=== PATIENT | male | born 1950 | race Caucasian/White ===

== ENCOUNTER → 2016-08-26 | Outpatient (CLI) | payer BC ==
[~2016-08-26] MED LIST: ASPEC81 PO; GLCPUNK; ZNTT/150 PO
[2016-08-26 09:31] LABS: BASO % 0.3 %; BASO ABS # 0.02 K/uL (0-0.2); COMPLETE YES; EOS % 2.6 %; HEMATOCRIT 44.9 % (42-52); IG% 0.3 %; LYMPH % 20.9 %; LYMPH ABS # 1.53 K/uL (1.2-3.4); MEAN CELL VOLUME 87.7 fL (80-100); MEAN CORPUSCULAR HEMOGLOBIN 30.3 pg (25-34); MEAN CORPUSCULAR HGB CONC 34.5 g/dl (32-36); MEAN PLATELET VOLUME 11.6 fL (7.4-10.4); MONO % 7.7 %; NEUT % 68.2 %; PLATELET COUNT 158 K/uL (130-400); RED BLOOD COUNT 5.12 M/uL (4.7-6.1); WHITE BLOOD COUNT 7.31 K/uL (4.8-10.8)
[2016-08-26 09:45] LABS: BLOOD UREA NITROGEN 14 mg/dl (7-18); CREATININE 0.92 mg/dl (0.60-1.40); GLUCOSE 198 mg/dl (70-99)
[2016-08-26 09:46] LABS: ALT/SGPT 33 U/L (12-78); BUN/CREATININE RATIO 15.5 (10-20); CALCIUM 9.2 mg/dl (8.5-10.1); CARBON DIOXIDE 28 mmol/L (21-32); CHLORIDE 102 mmol/L (98-107); CHOLESTEROL 106 mg/dl (0-200); POTASSIUM 4.6 mmol/L (3.5-5.1); SODIUM 139 mmol/L (136-145); TRIGLYCERIDES 106 mg/dl (0-150); VERY LOW DENSITY LIPOPROT CALC 21 mg/dl
[2016-08-26 09:47] LABS: ESTIMATED AVERAGE GLUCOSE 134 mg/dl; HA1C FLAG Normal (Normal)
[2016-08-26 09:56] LABS: ALB/GLOB RATIO 1.2 (0.9-2); ALKALINE PHOSPHATASE 60 U/L (45-117); AST/SGOT 19 U/L (15-37); CHOLESTEROL/HDL RATIO 2.1; HDL CHOLESTEROL 50 mg/dl; LDL CHOLESTEROL CALCULATED 35 mg/dl
== END | disposition home or self-care (01) ==
LOC: C.LAB1850 07:33
PROVIDERS: ATTEND Nurse Practitioner Family
DX: E11.9 Type 2 diabetes mellitus without complications (principal); E78.5 Hyperlipidemia, unspecified; E03.9 Hypothyroidism, unspecified

== ENCOUNTER → 2016-10-28 | Outpatient (CLI) | payer BC ==
[2016-10-28 12:04] LABS: % FREE PSA 27.9 %; FREE PSA 1.71 ng/ml; PROSTATE SPECIFIC ANTIGEN 6.12 ng/ml (0.000-4.000)
== END | disposition home or self-care (01) ==
LOC: C.LAB1850 10:17
PROVIDERS: ATTEND Urology
DX: N40.0 Benign prostatic hyperplasia without lower urinary tract symptoms (principal)

== ENCOUNTER → 2017-01-08 | Outpatient (CLI) | payer BC ==
[2017-01-08 12:39] LABS: ESTIMATED AVERAGE GLUCOSE 146 mg/dl; HA1C FLAG Normal (Normal)
== END | disposition home or self-care (01) ==
LOC: C.LAB1850 10:29
PROVIDERS: ATTEND Nurse Practitioner Family
DX: E11.9 Type 2 diabetes mellitus without complications (principal)

== ENCOUNTER → 2017-04-09 | Outpatient (CLI) | payer BC ==
[2017-04-09 12:24] LABS: ESTIMATED AVERAGE GLUCOSE 154 mg/dl; HA1C FLAG Normal (Normal)
[2017-04-09 12:33] LABS: % FREE PSA 25.9 %; FREE PSA 1.79 ng/ml; PROSTATE SPECIFIC ANTIGEN 6.9 ng/ml (0.000-4.000)
== END | disposition home or self-care (01) ==
LOC: C.LAB1850 10:54
PROVIDERS: ATTEND Nurse Practitioner Family
DX: N40.0 Benign prostatic hyperplasia without lower urinary tract symptoms (principal); E11.9 Type 2 diabetes mellitus without complications

== ENCOUNTER → 2017-04-30 | Outpatient (CLI) | payer BC | END | disposition home or self-care (01) | LOC: C.LABSPEC 17:24 | PROVIDERS: ATTEND Nurse Practitioner Family | DX: R39.9 Unspecified symptoms and signs involving the genitourinary system (principal) ==

== ENCOUNTER → 2017-09-01 | Outpatient (CLI) | payer BC ==
[2017-09-01 12:23] LABS: HEMOGLOBIN A1C 7.5 % (4.5-5.6)
[2017-09-01 12:35] LABS: BLOOD UREA NITROGEN 17 mg/dl (7-18); GLUCOSE 248 mg/dl (70-99)
[2017-09-01 12:36] LABS: ALBUMIN 3.9 gm/dl (3.4-5.0); ALT/SGPT 32 U/L (12-78); AST/SGOT 14 U/L (15-37); CALCIUM 8.8 mg/dl (8.5-10.1); CARBON DIOXIDE 24 mmol/L (21-32); CREATININE 0.97 mg/dl (0.60-1.40); POTASSIUM 4.7 mmol/L (3.5-5.1); SODIUM 132 mmol/L (136-145); TOTAL PROTEIN 7.2 gm/dl (6.4-8.2)
[2017-09-01 12:48] LABS: ALKALINE PHOSPHATASE 63 U/L (45-117); CHOLESTEROL 102 mg/dl (0-200); LDL CHOLESTEROL CALCULATED 22 mg/dl
[2017-09-01 13:31] LABS: CREATININE RANDOM URINE 66.8 mg/dl
== END ==
LOC: C.LAB1850 09:41
PROVIDERS: ATTEND Nurse Practitioner Family
DX: E11.9 Type 2 diabetes mellitus without complications (principal); R39.9 Unspecified symptoms and signs involving the genitourinary system

== ENCOUNTER → 2017-12-03 | Outpatient (CLI) | payer BC ==
[~2017-12-03] MED LIST changes: +RANI150T85 PO; -ZNTT/150 PO
[2017-12-04 07:07] LABS: HEMOGLOBIN A1C 7.1 % (4.5-5.6)
== END | disposition home or self-care (01) ==
LOC: C.LABPBG 08:57
PROVIDERS: ATTEND Nurse Practitioner Family
DX: N40.1 Benign prostatic hyperplasia with lower urinary tract symptoms (principal); E11.9 Type 2 diabetes mellitus without complications

== ENCOUNTER → 2018-03-10 | Outpatient (CLI) | payer BC ==
[2018-03-10 13:07] LABS: HEMOGLOBIN A1C 6.7 % (4.5-5.6)
[2018-03-10 13:16] LABS: ALKALINE PHOSPHATASE 54 U/L (45-117); ALT/SGPT 35 U/L (12-78); AST/SGOT 17 U/L (15-37); BLOOD UREA NITROGEN 13 mg/dl (7-18); CALCIUM 8.6 mg/dl (8.5-10.1); CARBON DIOXIDE 25 mmol/L (21-32); CREATININE 0.96 mg/dl (0.60-1.40); GLUCOSE 140 mg/dl (70-99); POTASSIUM 4.7 mmol/L (3.5-5.1); SODIUM 135 mmol/L (136-145); TOTAL PROTEIN 7.3 gm/dl (6.4-8.2)
== END | disposition home or self-care (01) ==
LOC: C.LABPBG 10:12
PROVIDERS: ATTEND Nurse Practitioner Family
DX: E11.65 Type 2 diabetes mellitus with hyperglycemia (principal); E03.9 Hypothyroidism, unspecified; I10 Essential (primary) hypertension

== ENCOUNTER 2019-08-22 11:09 | Inpatient (IN) ==
[2019-08-22] MEDS ORDERED: LORazepam 1 MG/2 ML VIAL IV STA (12:05)
[2019-08-22 12:19] LABS: Eosinophils # (auto) 0.19 K/uL (0-0.5); Eosinophils % (auto) 2.9 %; Hematocrit (blood only) 41.6 % (42-52); Hemoglobin 14.5 g/dL (14.0-18.0); Immature Granulocytes # (auto) 0.01 K/uL (0.00-0.02); Immature Granulocytes % (auto) 0.2 %; Lymphocytes # (auto) 1.59 K/uL (1.2-3.4); Lymphocytes % (auto) 24.5 %; Mean Corpuscular Hemoglobin 30.5 pg (25-34); Mean Corpuscular Hgb Conc 34.9 g/dL (32-36); Mean Corpuscular Volume 87.6 fL (80-100); Mean Platelet Volume 10.3 fL (7.4-10.4); Monocytes # (auto) 0.39 K/uL (0.11-0.59); Neutrophils % (auto) 66.4 %; Platelet Count 171 K/uL (130-400); RDW Coefficient of Variation 12.9 % (11.5-14.5); RDW Standard Deviation 41.2 fL (36.4-46.3); Red Blood Count 4.75 M/uL (4.7-6.1); White Blood Count 6.48 K/uL (4.8-10.8)
[2019-08-22 12:27] LABS: Alanine Aminotransferase 33 U/L (12-78); Albumin Level 3.9 gm/dl (3.4-5.0); Aspartate Aminotransferase 17 U/L (15-37); BUN Creatinine Ratio 11.1 (10-20); Blood Urea Nitrogen 9 mg/dl (7-18); Calcium 8.9 mg/dl (8.5-10.1); Carbon Dioxide 25 mmol/L (21-32); Chloride 102 mmol/L (98-107); Creatinine Clr Calc Pharmacy 108.3 ml/min; Est GFR (African American) 105.4; Glucose 122 mg/dl (70-99); Potassium 4.3 mmol/L (3.5-5.1); Sodium 133 mmol/L (136-145)
[2019-08-22 12:29] LABS: INR 1.1 (0.9-1.1); Partial Thromboplastin Ratio 1.1; Partial Thromboplastin Time 29.5 Seconds (21.0-31.0)
[2019-08-22 12:31] LABS: Albumin Globulin Ratio 1.2 (0.9-2); Alkaline Phosphatase 60 U/L (45-117); Bilirubin,Total 0.5 mg/dl (0.2-1); Globulin 3.3 gm/dl (2.5-4.0); Magnesium 1.9 mg/dl (1.8-2.4); Total Protein 7.2 gm/dl (6.4-8.2); Troponin I < 0.015 ng/ml (0-0.045)
[2019-08-22 12:36] LABS: Appearance Urine Clear (Clear); Bilirubin Urine Negative (Negative); Blood Urine Negative (Negative); Color Urine Yellow; Glucose Urine UA Negative (Negative); Ketones Urine Negative (Negative); Leukocyte Esterase Urine Negative (Negative); Nitrite Urine Negative (Negative); Protein Urine Negative (Negative); Specific Gravity Urine 1.011 (1.000-1.030); Urobilinogen Urine Negative (Negative); pH Urine 6.5 (4.5-7.5)
--- NOTE | 2019-08-22 13:15 | Magnetic Resonance Report ---
MRI OF THE BRAIN WITHOUT CONTRAST CLINICAL HISTORY: Left-sided numbness. Possible stroke. COMPARISON STUDY: None. TECHNIQUE: Utilizing a 1.5 Stormy magnet and dedicated coil, multiplanar, multiecho imaging of the bra in was performed without IV contrast. FINDINGS: Note is made of a 6 mm x 4 mm hyperintense focus within the right thalamus on the diffusion -weighted sequence, image 12 of 48. This corresponds to a small T2 hyperintense focus and is mildly h ypointense on the ADC map. No additional foci of increased signal intensity on the diffusion-weighted sequence are noted. No acute intracranial hemorrhage, midline shift or mass effect is present. There is moderate atrophy. Encephalomalacia within the right temporal lobe is chronic. Ventricular system is unremarkable. Basilar cisterns are patent. There are no extra axial collections. No intracranial m asses are identified on this unenhanced examination. Mild white matter T2 hyperintense foci suggest s mall vessel disease. There are mucous retention cyst within the bilateral maxillary sinuses. Orbits a re unremarkable. Calvarial signal is maintained. IMPRESSION: 1. Small (6 mm) acute right thalamic infarct. No mass effect or hemorrhage. 2. Right temporal lobe encephalomalacia. Moderate atrophy and mild small vessel disease. ACT 112: Negative or not required by law. Electronically signed by: Mateusz Martin M.D. 08/22/2019 1:13 PM
[2019-08-22] MEDS ORDERED: CLOPIDOGREL BISULFATE 75 MG TAB PO ONE (13:46)
[2019-08-22] MEDS ORDERED: ACETAMINOPHEN 325 MG TAB PO PRN (14:25)
[2019-08-22] MEDS ORDERED: PHARMACIST DISCHARGE MED REC CONSULT PRN (14:25)
[2019-08-22] MEDS ORDERED: ONDANSETRON INJ 2 MG/ML 2 ML VIAL IV PRN (14:25)
--- NOTE | 2019-08-22 14:25 | History & Physical Report ---
Date of Service August 22, 2019 Assessment & Plan (1) Acute thalamic infarction: - Admit to med surg with tele - MRI noted for acute small (6mm) R thalamic infarct, right temporal lobe encephalomalacia, moderate atrophy and mild small vessel disease. - Neurology consulted - Dr. Moreno - Check CT angio head and neck - Allow for permissive HTN - Seizure and Fall precautions - A1C and lipids with am labs for completeness - Already on full dose asa daily (pt reports taking this BID at home, counseled to hold on second full dose aspirin tablet per day since we are adding plavix) - add plavix, already received one dose in the ER - Check 2D echo, last echo from 10/10/08 with LVEF of 60%, mild concentric LVH, trileaflet aortic valve with mild calcification, trace MR and TR (2) Arteriosclerotic coronary artery disease: - Continue on asa 325 mg daily, atorvastatin 80 mg daily, hold lisinopril to allow for permissive htn - Add plavix (3) Hypertension: - BP 161/84 at time of admission, monitor, holding lisinopril as above (4) Dyslipidemia: - Continue statin as above (5) Type 2 diabetes mellitus: - Last A1C = 6.7 from 05/26/19, check with am labs - Pt notes glucose readings have been elevated recently, he admits much higher depending on what he eats - Appears that he follows with Anshu Laurent as an outpatient for DM management - HH/DM diet - ISS with accucheckpro achs - Hold metformin and glipizide while inpatient (6) Hypothyroidism: - Continue levothyroxine 100 mcg QAM (7) BPH (benign prostatic hyperplasia): - Pt with complaints of frequent urination, follows with Dr. Gomez as an outpatient, has had outpatient prostate biopsies in the past - Continue dutasteride and tolterodine (8) Obese: - BMI of 32.9, diet and exercise to be encouraged upon discharge. (9) DVT prophylaxis: - teds, initiating DAPT CODE: Full code Dispo: From home, likely to remain in the hospital overnight, pending studies History of Present Illness Primary Care Provider: Dio Livingston This is a 68-year-old male with past medical history of CAD s/p CABG x3 vessel in 2008, HTN, HLD, DM type II, BPH who presents to the ER with acute onset of LUE and Left lateral calf numbness which began last evening after dinner. The pat is present here with his . He notes that they were out to dinner at the [facility] yesterday, he noticed numbness but did not have any motor deficits at all. He was able to eat his meal without difficulty chewing, swallowing, or have any speech disturbances. He denies changes in vision. Pt notes going to bed and woke up with semi-resolved sx of the left leg numbness, but still had numbness of the left hand and an area under the left upper arm. He currently only has numbness of the left palm and all five fingers. He denies any gross motor deficits currently. Pt takes full dose aspirin twice daily, and has been since his triple bypass per cardiology. He follows with Dr. Shah as an outpatient, and is scheduled to see him for a routine appointment soon. He last took all his medication yesterday. Pt has never smoked, and drinks 2 glasses of wine per day with dinner. MRI noted for acute small R thalamic infarct, right temporal lobe encephalomalacia, moderate atrophy and mild small vessel disease. All labs are WNL Allergies Allergy/AdvReac Type Severity Reaction Status Date / Time No Known Allergies Allergy Unknown NONE Verified 08/22/19 12:32 Home Medications Home Medications Medication Instructions Recorded Confirmed Type aspirin 325 mg tablet 325 mg PO DAILY tab 04/12/19 08/22/19 History blood sugar diagnostic #10 ea 04/12/19 04/21/19 History cyanocobalamin (vitamin B-12) 1,000 mcg PO DAILY cap 04/12/19 08/22/19 History 1,000 mcg capsule diphenoxylate-atropine 2.5 1 tab PO QID PRN tab 04/12/19 08/22/19 History mg-0.025 mg tablet glipizide 5 mg tablet, extended 5 mg PO BID #180 tab 04/12/19 08/22/19 History release 24 hr krill oil 500 mg capsule 1,000 mg PO DAILY cap 04/12/19 08/22/19 History levothyroxine 100 mcg tablet 100 mcg PO QAM tab 04/12/19 08/22/19 History lisinopril 5 mg tablet 5 mg PO DAILY #90 tab 04/12/19 08/22/19 History FreeStyle Lancets 28 gauge #400 ea NS 05/21/19 Rx atorvastatin 80 mg tablet 80 mg PO DAILY 90 Days #90 tab 05/27/19 08/22/19 Rx dutasteride 0.5 mg capsule 0.5 mg PO DAILY #90 cap 06/17/19 08/22/19 Rx metformin 500 mg tablet 1,000 mg PO BID #180 tab 06/21/19 08/22/19 Rx tolterodine 2 mg tablet 2 mg PO BID #180 tab 07/19/19 08/22/19 Rx alfuzosin 10 mg PO QPM 08/22/19 08/22/19 History multivitamin with minerals 1 tab PO DAILY 08/22/19 08/22/19 History Past Med/Surg History Medical History Arteriosclerotic coronary artery disease (Acute) Benign prostatic hyperplasia with elevated prostate specific antigen (PSA) (Inactive) Diabetes Dyslipidemia (Acute) Elevated PSA (Acute) Erectile dysfunction (Acute) Hypertension (Acute) Hypoglycemia (Acute) Hypothyroidism (Acute) Obese (Acute) Surgical History No pertinent past surgical history Family History (Updated 08/22/19 @ 15:04 by Melissa Neil PA-C) Other Coronary heart disease Heart disease Social History Preferred Language: Syriac Communication Ability: Effective Curriculum And Assessment Coordinator Required: No Beliefs That Will Affect Care: None Current Living Situation: Spouse Other Information That Helps Us Care for You: No Feels Safe at Home: Yes Safety Concerns: Feels Safe At This Time Smoking Status: Never smoker Do You Dip or Chew Tobacco: No ; Second Hand Exposure: No ; Tobacco Cessation Education Requested by Patient: No Hx Alcohol Use: No Hx Substance Use: No Review of Systems Review of Systems: Constitutional: No fever, sweats or chills Eyes: No diplopia, no worsening or blurred vision ENT: normal hearing, no trouble swallowing Respiratory: No cough, sputum, dyspnea at rest or on exertion Cardiovascular: No chest pain, tightness or palpitations Abdomen: No pain, nausea, vomiting, diarrhea or constipation : frequent urination d/t BPH Musculoskeletal: No joint pain, calf pain, swelling Neurologic: As per HPI involving numbness of the left hand and left lateral calf, currently only describes left hand numbness, no gross motor issues, otherwise no numbness/tingling, or balance problems Psychiatric: No anxiety or depression Skin: No rash or itch Physical Exam Physical Exam: General: awake, alert, no apparent distress Head: Normocephalic, atraumatic ENT: PERRL, EOMI, no pharyngeal exudate, mucous membranes moist Chest: Clear to auscultation, on room air, no adventitious breath sounds Cardiac: Regular rate and rhythm, no murmur, no JVD, normal peripheral pulses, good capillary refill Abdominal: NABS x 4 quadrants, soft, nondistended, nontender to palpation, no rebound, guarding or tenderness Extremities: Normal inspection, no peripheral edema or erythema, calfs nontender to palpation Psych: Normal mood and affect Neuro: AAO x 3, strength intact bilaterally and related 5/5, no motor deficits, speech is clear, +peripheral sensory deficits present in left hand involving all fingers, palm and dorsal aspect of hand. Numbness does not extend past the wrist. No left lateral leg numbness at this point. Constitutional: WD/WN, vitals as above Eyes: normal visual smith by confrontation and + anicteric sclerae Neck: normal visual inspection and trachea midline Respiratory: normal respiratory effort, lungs clear to auscultation Cardiovascular: Rate/Rhythm: regular rate and regular rhythm Gastrointestinal (Abdomen): Inspection/Auscultation: abdomen not distended Percussion/Palpation: abdomen soft; abdomen nontender Musculoskeletal: Head/Neck/Chest: normocephalic and head atraumatic Neg for peripheral LE edema, + pedal pulses Skin: no rashes, warm and dry Neurologic: CN's II-XI intact bilaterally and awake; not confused Speech / Cognition: normal speech scale shooter strength 5/5 b/l Psychiatric: A+Ox3, euthymic affect Speech: normal rate/rhythm/volume of speech Lymphatic: Exam as done by Edna Alexander DO Results & Data Vital Signs (Past 12 Hours) Vital Signs Temp Pulse Pulse Resp BP BP Pulse Ox 08/22/19 13:23 61 20 161/84 H 98 08/22/19 12:35 64 22 153/105 H 96 08/22/19 11:17 36.9 C 71 20 207/97 H 98 Diagnostic Findings MRI OF THE BRAIN WITHOUT CONTRAST CLINICAL HISTORY: Left-sided numbness. Possible stroke. COMPARISON STUDY: None. TECHNIQUE: Utilizing a 1.5 Stormy magnet and dedicated coil, multiplanar, multiecho imaging of the brain was performed without IV contrast. FINDINGS: Note is made of a 6 mm x 4 mm hyperintense focus within the right thalamus on the diffusion-weighted sequence, image 12 of 48. This corresponds to a small T2 hyperintense focus and is mildly hypointense on the ADC map. No additional foci of increased signal intensity on the diffusion-weighted sequence are noted. No acute intracranial hemorrhage, midline shift or mass effect is present. There is moderate atrophy. Encephalomalacia within the right temporal lobe is chronic. Ventricular system is unremarkable. Basilar cisterns are patent. There are no extra axial collections. No intracranial masses are identified on this unenhanced examination. Mild white matter T2 hyperintense foci suggest small vessel disease. There are mucous retention cyst within the bilateral maxillary sinuses. Orbits are unremarkable. Calvarial signal is maintained. IMPRESSION: 1. Small (6 mm) acute right thalamic infarct. No mass effect or hemorrhage. 2. Right temporal lobe encephalomalacia. Moderate atrophy and mild small vessel disease. Code Status & VTE Plan Code Status Full Supervising Physician Co-Signing Physician Notes Pt seen and examined by me. States that the numbness to his L hand is mostly resolved now. Other regions of numbness (L UE otherwise, L sided face, and L calf) all resolved yesterday. No prior hx of same. Denies chest pain or SOB. Tolerating PO without issue. Agree with HPI/ROS as noted by PA See above for my exam in PE section Agree with plan as outlined above R thalamic CVA noted on MRI MRA h/n neg for acute ECHO pending Neuro c/s pending Concerning that pt had an event in the setting of aspirin 650mg QD Changing to plavix PG Care Time/CCT Total # of Minutes Spent Total Time Spent with Patient: Total time spent is greater than 50% in coordination of care (as documented) at patient's floor/unit and/or counseling patient:
--- NOTE | 2019-08-22 14:38 | Emergency Department Note ---
Entered by Iliana Weber acting as a scribe for History of Present Illness General Chief complaint: Neuro Symptoms/Deficit Stated complaint: LEFT ARM AND FACE NUMB - LEFT LEG WAS NUMB LAST NI Time Seen by Provider: 08/22/19 11:55 Source: patient History of Present Illness Onset (ago): day(s) 1 Location: face, upper extremity, lower extremity and left Pain Consistency: + now resolved Quality: + other (numbness) Associated symptoms: + denies other symptoms (denies slurred speech) and + other (numbness on left side); no chest pain and no shortness of breath Treatments prior to arrival: none The patient is a 68 year old male who presents to the Emergency Room with complaints of left sided numbness that began last night around 20:00. He noticed that his left forearm and hand became numb, as well as the left side of his face and left calf. Since then, most of his numbness has subsided, but he did still feel it in his left hand this morning. He confirms that he has still has feeling in his hand. He denies slurred speech, chest pain, headache, and shortness of breath. He has a history of diabetes. The patient denies history of stroke. He takes medication for blood pressure and cholesterol. He confirms that he took his pills this morning. Home Medications Home Medications Medication Instructions Recorded Confirmed Type aspirin 325 mg tablet 325 mg PO DAILY tab 04/12/19 08/22/19 History blood sugar diagnostic #10 ea 04/12/19 04/21/19 History cyanocobalamin (vitamin B-12) 1,000 mcg PO DAILY cap 04/12/19 08/22/19 History 1,000 mcg capsule diphenoxylate-atropine 2.5 1 tab PO QID PRN tab 04/12/19 08/22/19 History mg-0.025 mg tablet glipizide 5 mg tablet, extended 5 mg PO BID #180 tab 04/12/19 08/22/19 History release 24 hr krill oil 500 mg capsule 1,000 mg PO DAILY cap 04/12/19 08/22/19 History levothyroxine 100 mcg tablet 100 mcg PO QAM tab 04/12/19 08/22/19 History lisinopril 5 mg tablet 5 mg PO DAILY #90 tab 04/12/19 08/22/19 History FreeStyle Lancets 28 gauge #400 ea NS 05/21/19 Rx atorvastatin 80 mg tablet 80 mg PO DAILY 90 Days #90 tab 05/27/19 08/22/19 Rx dutasteride 0.5 mg capsule 0.5 mg PO DAILY #90 cap 06/17/19 08/22/19 Rx metformin 500 mg tablet 1,000 mg PO BID #180 tab 06/21/19 08/22/19 Rx tolterodine 2 mg tablet 2 mg PO BID #180 tab 07/19/19 08/22/19 Rx alfuzosin 10 mg PO QPM 08/22/19 08/22/19 History multivitamin with minerals 1 tab PO DAILY 08/22/19 08/22/19 History Allergies Allergy/AdvReac Type Severity Reaction Status Date / Time No Known Allergies Allergy Unknown NONE Verified 08/22/19 12:32 Past Med/Surg History Medical History Arteriosclerotic coronary artery disease (Acute) Benign prostatic hyperplasia with elevated prostate specific antigen (PSA) (Inactive) Diabetes Dyslipidemia (Acute) Elevated PSA (Acute) Erectile dysfunction (Acute) Hypertension (Acute) Hypoglycemia (Acute) Hypothyroidism (Acute) Obese (Acute) Surgical History No pertinent past surgical history Family History (Updated 08/22/19 @ 15:04 by Melissa Neil PA-C) Other Coronary heart disease Heart disease Social History Preferred Language: Indian Communication Ability: Effective Reed Maker Required: No Beliefs That Will Affect Care: None Current Living Situation: Spouse Other Information That Helps Us Care for You: No Feels Safe at Home: Yes Safety Concerns: Feels Safe At This Time Smoking Status: Never smoker Do You Dip or Chew Tobacco: No ; Second Hand Exposure: No ; Tobacco Cessation Education Requested by Patient: No Hx Alcohol Use: No Hx Substance Use: No Review of Systems See HPI for pertinent positives & negatives. and A total of 10 systems reviewed and were otherwise negative Physical Exam Vital Signs Vital Signs - 24 hr 08/22/19 11:17 08/22/19 12:35 08/22/19 13:23 Temperature 36.9 C Temperature Source Oral Pulse Rate 71 Pulse Rate [Apical] 64 61 Respiratory Rate 20 22 20 Respiratory Effort / Characteristics Non-Labored Spontaneous Respiratory Depth Normal Respiratory Pattern Regular Blood Pressure 207/97 H Blood Pressure [Right Arm] 153/105 H 161/84 H Blood Pressure Mean 133 Blood Pressure Mean [Right Arm] 121 109 Pulse Oximetry 98 96 98 Oxygen Delivery Method Room Air Room Air Room Air Sepsis Recent Fever Within 48 Hours No Sepsis New/Unexplained Change in Mental Status No Sepsis Action Taken by Nursing No Action Required 08/22/19 14:25 Temperature Temperature Source Pulse Rate Pulse Rate [Apical] 63 Respiratory Rate 20 Respiratory Effort / Characteristics Respiratory Depth Respiratory Pattern Blood Pressure Blood Pressure [Right Arm] 155/89 H Blood Pressure Mean Blood Pressure Mean [Right Arm] 111 Pulse Oximetry 98 Oxygen Delivery Method Room Air Sepsis Recent Fever Within 48 Hours Sepsis New/Unexplained Change in Mental Status Sepsis Action Taken by Nursing GENERAL: Patient is in no acute distress. HEENT: No acute trauma, normocephalic atraumatic, mucous membranes moist, no nasal congestion, no scleral icterus. NECK: No stridor, no adenopathy, no meningismus, trachea is midline. LUNGS: Clear to auscultation bilaterally, no wheeze, no rhonchi, breath sounds equal. HEART: Subtle systolic murmur. Regular rate and rhythm. ABDOMEN: Soft, nontender, bowel sounds positive, no hernias, no peritonitis. EXTREMITIES: No cyanosis or edema, full range of motion of all the joints without pain or difficulty, no signs for acute trauma. NEUROLOGIC: No facial droop, no speech slur, no cerebellar deficit or pronator drift. Oriented x 3, no acute motor or sensory deficits, no focal weakness. SKIN: No rash, no jaundice, no diaphoresis. Course Course 1200: Past medical records reviewed. The patient was evaluated in room B02. A complete history and physical exam was performed. 1322: MRI shows a small stroke. 1325: I updated the patient on his results. He and his will discuss the possibility of staying at the hospital. 1348: I spoke to Dr. Moreno, neurology, who recommends that the patient take Plavix [address] of aspirin. 1350: I updated the patient, who has agreed to stay in the hospital. [facility] hospitalist was paged. 1413: I spoke to Dr. Alexander, [facility] hospitalist, who agreed to take over care of the patient. The patient will stay for further evaluation. The patient verbally expressed understanding and agreement of the treatment plan. Administered Medications Ioversol (Optiray 320 125ml) 119 ml IV ONCE PRN PRN Reason: Interaction Checking Stop: 08/26/19 15:26 Last Admin: 08/22/19 15:30 Dose: 119 ml Documented by: [id number] Discontinued Medications Clopidogrel Bisulfate (Plavix) 75 mg PO NOW ONE Stop: 08/22/19 13:47 Last Admin: 08/22/19 14:20 Dose: 75 mg Documented by: [id number] Lorazepam (Ativan) 1 mg in 2 mls @ 2 mls/min IV NOW STA Stop: 08/22/19 12:06 Last Admin: 08/22/19 12:33 Dose: 2 mls/min Documented by: [id number] Medical Decision Making Differential Diagnosis Differential diagnosis includes stroke, TIA, electrolyte imbalance, dysrhythmia, A fib, anemia, intracranial bleeding, intracranial mass, as well as others were considered. Medical Records Attestation: I reviewed the patient's medical records. Home Medications Current Medication List: was personally reviewed by me Laboratory Data Attestation: I reviewed the patient's lab results. Result diagrams: 08/22/19 11:47 08/22/19 11:47 Lab Results 08/22/19 08/22/19 08/22/19 Range/Units 11:32 11:47 11:47 WBC 6.48 (4.8-10.8) K/uL RBC 4.75 (4.7-6.1) M/uL Hgb 14.5 (14.0-18.0) g/dL Hct 41.6 L (42-52) % MCV 87.6 (80-100) fL MCH 30.5 (25-34) pg MCHC 34.9 (32-36) g/dL RDW Std Deviation 41.2 (36.4-46.3) fL RDW Coeff of Natacha 12.9 (11.5-14.5) % Plt Count 171 (130-400) K/uL MPV 10.3 (7.4-10.4) fL Immature Gran % (Auto) 0.2 % Neut % (Auto) 66.4 % Lymph % (Auto) 24.5 % Lucas % (Auto) 6.0 % Eos % (Auto) 2.9 % Baso % (Auto) 0.0 % Immature Gran # (Auto) 0.01 (0.00-0.02) K/uL Neut # (Auto) 4.30 (1.4-6.5) K/uL Lymph # (Auto) 1.59 (1.2-3.4) K/uL Lucas # (Auto) 0.39 (0.11-0.59) K/uL Eos # (Auto) 0.19 (0-0.5) K/uL Baso # (Auto) 0.00 (0-0.2) K/uL PT 11.0 (9.0-12.0) Seconds INR 1.1 (0.9-1.1) APTT 29.5 (21.0-31.0) Seconds PTT Ratio 1.1 Sodium (136-145) mmol/L Potassium (3.5-5.1) mmol/L Chloride (98-107) mmol/L Carbon Dioxide (21-32) mmol/L Anion Gap (3-11) BUN (7-18) mg/dl Creatinine (0.6-1.4) mg/dl Est Cr Clr Drug Dosing ml/min Est GFR ( Amer) Est GFR (Non-Af Amer) BUN/Creatinine Ratio (10-20) Glucose (70-99) mg/dl POC Glucose 125 H (70-99) Calcium (8.5-10.1) mg/dl Magnesium (1.8-2.4) mg/dl Total Bilirubin (0.2-1) mg/dl AST (15-37) U/L ALT (12-78) U/L Alkaline Phosphatase (45-117) U/L Troponin I (0-0.045) ng/ml Total Protein (6.4-8.2) gm/dl Albumin (3.4-5.0) gm/dl Globulin (2.5-4.0) gm/dl Albumin/Globulin Ratio (0.9-2) Urine Color Urine Appearance (Clear) Urine pH (4.5-7.5) Ur Specific [place] (1.000-1.030) Urine Protein (Negative) Urine Glucose (UA) (Negative) Urine Ketones (Negative) Urine Blood (Negative) Urine Nitrite (Negative) Urine Bilirubin (Negative) Urine Urobilinogen (Negative) Ur Leukocyte Esterase (Negative) Hepatitis C Ab Screen (Neg) 08/22/19 08/22/19 08/22/19 Range/Units 11:47 11:47 12:26 WBC (4.8-10.8) K/uL RBC (4.7-6.1) M/uL Hgb (14.0-18.0) g/dL Hct (42-52) % MCV (80-100) fL MCH (25-34) pg MCHC (32-36) g/dL RDW Std Deviation (36.4-46.3) fL RDW Coeff of Natacha (11.5-14.5) % Plt Count (130-400) K/uL MPV (7.4-10.4) fL Immature Gran % (Auto) % Neut % (Auto) % Lymph % (Auto) % Lucas % (Auto) % Eos % (Auto) % Baso % (Auto) % Immature Gran # (Auto) (0.00-0.02) K/uL Neut # (Auto) (1.4-6.5) K/uL Lymph # (Auto) (1.2-3.4) K/uL Lucas # (Auto) (0.11-0.59) K/uL Eos # (Auto) (0-0.5) K/uL Baso # (Auto) (0-0.2) K/uL PT (9.0-12.0) Seconds INR (0.9-1.1) APTT (21.0-31.0) Seconds PTT Ratio Sodium 133 L (136-145) mmol/L Potassium 4.3 (3.5-5.1) mmol/L Chloride 102 (98-107) mmol/L Carbon Dioxide 25 (21-32) mmol/L Anion Gap 6.0 (3-11) BUN 9 (7-18) mg/dl Creatinine 0.79 (0.6-1.4) mg/dl Est Cr Clr Drug Dosing 108.3 ml/min Est GFR ( Amer) 105.4 Est GFR (Non-Af Amer) 91.0 BUN/Creatinine Ratio 11.1 (10-20) Glucose 122 H (70-99) mg/dl POC Glucose (70-99) Calcium 8.9 (8.5-10.1) mg/dl Magnesium 1.9 (1.8-2.4) mg/dl Total Bilirubin 0.5 (0.2-1) mg/dl AST 17 (15-37) U/L ALT 33 (12-78) U/L Alkaline Phosphatase 60 (45-117) U/L Troponin I < 0.015 (0-0.045) ng/ml Total Protein 7.2 (6.4-8.2) gm/dl Albumin 3.9 (3.4-5.0) gm/dl Globulin 3.3 (2.5-4.0) gm/dl Albumin/Globulin Ratio 1.2 (0.9-2) Urine Color Yellow Urine Appearance Clear (Clear) Urine pH 6.5 (4.5-7.5) Ur Specific [place] 1.011 (1.000-1.030) Urine Protein Negative (Negative) Urine Glucose (UA) Negative (Negative) Urine Ketones Negative (Negative) Urine Blood Negative (Negative) Urine Nitrite Negative (Negative) Urine Bilirubin Negative (Negative) Urine Urobilinogen Negative (Negative) Ur Leukocyte Esterase Negative (Negative) Hepatitis C Ab Screen Neg (Neg) ECG Data Attestation: I personally reviewed and interpreted this ECG as follows: Indication: + other (neurological symptoms) Rate (beats per minute): 64 Rhythm: + normal sinus ECG Intervals/blocks: + Normal QT-c (410) ECG ST segments: no ST depression and no ST elevation ECG Findings: no PACs and no PVCs Blood Pressure Blood Pressure Findings: Elevated blood pressure Blood Pressure Disposition: further management by hospitalist [facility] Narrative There is no leukocytosis or concerning anemia. No coagulopathy. No significant electrolyte abnormality or kidney failure. No liver enzyme elevation. EKG shows a sinus rhythm, no acute ischemia. Cardiac enzyme testing x1 is not consistent with acute cardiac injury. Urinalysis does not show any evidence for infection. Brain MRI does show a right thalamic stroke, this was felt to be acute. Some encephalomalacia was also noted. On my exam, the patient did not have any focal neurologic deficits. He was awake and alert, he had no speech slur or facial droop. The patient has suffered a small stroke, this stroke occurred yesterday, he is not a candidate for TPA. I spoke to the neurologist institutional research coordinator. Plavix was recommended in place of aspirin. A dose was given here orally. The patient did require a small dose of IV Ativan to help with his anxiety over the tight MRI conditions. The patient is currently resting comfortably without any real complaints. He has agreed to hospitalization. I did speak with case management, the on-call hospitalist was consulted. The patient is aware of all his findings. Impression & Plan Acute cerebrovascular accident (CVA), Hypertension, Left sided numbness Discharge Plan Visit Data *Final* Discharge Date/Time: 08/22/19 15:15 Chief Complaint: Neuro Symptoms/Deficit Stated Complaint: LEFT ARM AND FACE NUMB - LEFT LEG WAS NUMB LAST NI ED Provider: Raffi Cronin Discharge Problem: Acute cerebrovascular accident (CVA), Hypertension, Left sided numbness Patient Disposition: Admitted As Inpatient Discharge Instructions Interventions: ED Discharge Assessment Last Done: 08/22/19 15:15 The scribe's documentation has been prepared under my direction and personally reviewed by me in its entirety. I confirm that the note above accurately reflects all work, treatment, procedures, and medical decision making performed by me.
[2019-08-22] MEDS ORDERED: OPTIRAY 320 125ml IV PRN (15:27)
--- NOTE | 2019-08-22 15:39 | CT Scan Report ---
CT angio head w con HISTORY: Mental status change. Infarct. R thalamic infarct TECHNIQUE: Multiaxial CT angiography of the head was performed IV contrast: 100 cc nonionic Maximu m intensity projection images were also obtained. A dose lowering technique was utilized adhering to the principles of ALARA. COMPARISON: None. FINDINGS: There is no mass, hematoma, midline shift, or acute infarct. A small right thalamic infarct seen on prior MRI is not appreciated by CT criteria Visualized intracranial internal carotid arterie s, distal vertebral arteries, and basilar artery are widely patent. There is no significant stenosis, occlusion, or aneurysm seen within the bilateral ACAs, MCAs, or snow groomer. IMPRESSION: No significant stenosis, occlusion, or aneurysm within the [place]. ACT 112: Negative or not required by law. The above report was generated using voice recognition software. It may contain grammatical, syntax or spelling errors. Electronically signed by: Ivan Vitale M.D. 08/22/2019 3:37 PM
--- NOTE | 2019-08-22 15:42 | CT Scan Report ---
CT angio neck with con HISTORY: Infarct. Mental status change. R thalamic infarct TECHNIQUE: Multiaxial CT angiography of the neck was performed IV contrast: None. All measurements w ere calculated based on NASCET criteria. Maximum intensity projection images were also obtained. A dose lowering technique was utilized adhering to the principles of ALARA. COMPARISON STUDY: None. FINDINGS: The aortic arch and proximal great vessels are widely patent. There is no significant sten osis, occlusion, or dissection identified within the bilateral common carotid, internal carotid, or v ertebral arteries. IMPRESSION: No significant stenosis, occlusion, or dissection identified within the carotid or vertebral arteries . Minimal scattered plaque formation ACT 112: Negative or not required by law. The above report was generated using voice recognition software. It may contain grammatical, syntax or spelling errors. Electronically signed by: Ivan Vitale M.D. 08/22/2019 3:41 PM
[2019-08-22] MEDS ORDERED: DIPHENOXYLATE/ATROPINE 2.5/0.025MG TAB PO PRN (15:50)
[2019-08-22] MEDS ORDERED: ALFUZOSIN HCL 10 MG TAB PO SCH (21:00)
[2019-08-22] MEDS: TOLTERODINE TARTRATE 2 MG TAB PO SCH (21:13)
[2019-08-23 06:18] LABS: Estimated Average Glucose 143 mg/dl; Hemoglobin A1C 6.6 % (4.5-5.6)
[2019-08-23] MEDS ORDERED: LEVOTHYROXINE SODIUM 100 MCG TABLET PO SCH (06:30)
[2019-08-23] MEDS: TOLTERODINE TARTRATE 2 MG TAB PO SCH (07:52)
[2019-08-23 07:53] LABS: Basophils # (auto) 0.01 K/uL (0-0.2); Basophils % (auto) 0.2 %; Eosinophils # (auto) 0.15 K/uL (0-0.5); Hematocrit (blood only) 44.4 % (42-52); Hemoglobin 15.5 g/dL (14.0-18.0); Lymphocytes # (auto) 1.06 K/uL (1.2-3.4); Lymphocytes % (auto) 21.2 %; Mean Corpuscular Hemoglobin 30.5 pg (25-34); Mean Corpuscular Hgb Conc 34.9 g/dL (32-36); Mean Corpuscular Volume 87.4 fL (80-100); Mean Platelet Volume 10.3 fL (7.4-10.4); Neutrophils # (auto) 3.39 K/uL (1.4-6.5); Neutrophils % (auto) 67.6 %; Platelet Count 163 K/uL (130-400); RDW Coefficient of Variation 12.9 % (11.5-14.5); RDW Standard Deviation 41.4 fL (36.4-46.3); Red Blood Count 5.08 M/uL (4.7-6.1); White Blood Count 5.01 K/uL (4.8-10.8)
[2019-08-23 08:20] LABS: BUN Creatinine Ratio 11.5 (10-20); Calcium 9.2 mg/dl (8.5-10.1); Creatinine Clr Calc Pharmacy 101.8 ml/min; Est GFR (African American) 103.8; Est GFR (Non-African American) 89.6; Potassium 4.2 mmol/L (3.5-5.1)
[2019-08-23] MEDS ORDERED: NON-FORMULARY MEDICATION (Krill Oil 1,000 MG) PO SCH (09:00)
[2019-08-23] MEDS ORDERED: CYANOCOBALAMIN 500 MCG TABLET (VITAMIN B-12) PO SCH (09:00)
[2019-08-23] MEDS ORDERED: ASPIRIN 325 MG ECTAB PO SCH (09:00)
[2019-08-23] MEDS ORDERED: CLOPIDOGREL BISULFATE 75 MG TAB PO SCH (09:00)
[2019-08-23] MEDS ORDERED: ATORVASTATIN 40 MG TAB PO SCH (09:00)
[2019-08-23] MEDS ORDERED: MULTIVITAMIN TAB PO SCH (09:00)
[2019-08-23 12:41] VITALS: O2SAT 94
--- NOTE | 2019-08-23 14:43 | Electrocardiogram Report ---
Test Reason : Blood Pressure : / mmHG Vent. Rate : 064 BPM Atrial Rate : 064 BPM P-R Int : 186 ms QRS Dur : 102 ms QT Int : 398 ms P-R-T Axes : 002 -38 034 degrees QTc Int : 410 ms Normal sinus rhythm Left axis deviation Abnormal ECG When compared with ECG of 30-DEC-2011 07:54, No significant change was found Confirmed by Harrison Ashton ([id number]) on 08/23/2019 2:43:32 PM Referred By: REFERRED SELF Confirmed By:Harrison Ashton
[2019-08-23 15:23] VITALS: TEMP 97.5
--- NOTE | 2019-08-23 16:25 | Discharge Summary ---
Date of Service August 23, 2019 Admission HPI Per Admitting Provider This is a 68-year-old male with past medical history of CAD s/p CABG x3 vessel in 2008, HTN, HLD, DM type II, BPH who presents to the ER with acute onset of LUE and Left lateral calf numbness which began last evening after dinner. The pat is present here with his . He notes that they were out to dinner at the [facility] yesterday, he noticed numbness but did not have any motor deficits at all. He was able to eat his meal without difficulty chewing, swallowing, or have any speech disturbances. He denies changes in vision. Pt notes going to bed and woke up with semi-resolved sx of the left leg numbness, but still had numbness of the left hand and an area under the left upper arm. He currently only has numbness of the left palm and all five fingers. He denies any gross motor deficits currently. Pt takes full dose aspirin twice daily, and has been since his triple bypass per cardiology. He follows with Dr. Shah as an outpatient, and is scheduled to see him for a routine appointment soon. He last took all his medication yesterday. Pt has never smoked, and drinks 2 glasses of wine per day with dinner. MRI noted for acute small R thalamic infarct, right temporal lobe encephalomalacia, moderate atrophy and mild small vessel disease. All labs are WNL Principal Diagnosis Pt is doing quite well today. All of his numbness is now resolved. He has no issues with eating. He is very anxious for d/c due to a [employer] meeting tomorrow. Pt denies fever, SOB, chest pain, abd pain, n/v/c/d, LE pain or swelling. Discharge Exam Constitutional WD/WN, vitals as above Eyes normal visual smith by confrontation and + anicteric sclerae Neck normal visual inspection and trachea midline Respiratory normal respiratory effort, lungs clear to auscultation Cardiovascular Rate/Rhythm: regular rate and regular rhythm Gastrointestinal (Abdomen) Inspection/Auscultation: abdomen not distended Percussion/Palpation: abdomen soft; abdomen nontender Musculoskeletal Head/Neck/Chest: normocephalic and head atraumatic Skin no rashes, warm and dry Neurologic CN's II-XI intact bilaterally and awake; not confused Speech / Cognition: normal speech Psychiatric A+Ox3, euthymic affect Speech: normal rate/rhythm/volume of speech Discharge Data Allergies Allergy/AdvReac Type Severity Reaction Status Date / Time No Known Allergies Allergy Unknown NONE Verified 08/22/19 12:32 Consultations 08/22/19 14:13 ED Decision to Admit Stat 08/22/19 14:25 Consult Case Management - Discharge Planning Routine Consult Neurology Routine Ordered Studies 08/22/19 12:05 MR brain wo con Stat 08/22/19 14:27 CT angio head w con Routine 08/22/19 14:28 CT angio neck with con Routine Hospital Course (1) Acute thalamic infarction: - MRI noted for acute small (6mm) R thalamic infarct, right temporal lobe encephalomalacia, moderate atrophy and mild small vessel disease. 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, d/c for plavix ECHO WNL with EF 55-60% Neuro planning for 30day event monitor as outpt (2) Arteriosclerotic coronary artery disease: - d/c asa 325 mg daily Continue atorvastatin 80 mg daily - Add plavix (3) Hypertension: continue home meds (4) Dyslipidemia: - Continue statin as above (5) Type 2 diabetes mellitus: - Last A1C = 6.7 from 05/26/19, now at 6.6 - Pt notes glucose readings have been elevated recently, he admits much higher depending on what he eats - Appears that he follows with Anshu Laurent as an outpatient for DM management - HH/DM diet - Resume home meds (6) Hypothyroidism: - Continue levothyroxine 100 mcg QAM (7) BPH (benign prostatic hyperplasia): - Pt with complaints of frequent urination, follows with Dr. Gomez as an outpatient, has had outpatient prostate biopsies in the past - Continue dutasteride and tolterodine (8) Obese: - BMI of 32.9, diet and exercise to be encouraged upon discharge. (9) DVT prophylaxis: - teds, initiating DAPT CODE: Full code Total Time Total Time Spent Total Time Spent (In Minutes): >30 Total Time Includes: Examination of the Patient, Discharge Planning, Medication Reconciliation, Communication With Other Providers and Other Discharge Plan Discharge Items Patient Disposition: Home - Self-Care Reason For Visit: R THALAMIC CVA Discharge Diagnosis: R thalamic stroke Activity: Resume your previous activity Non-emergency contact: Primary Care Provider and Neurologist Call non-emergency contact if: you have any medication questions and your symptoms worsen Follow-up/Referrals: Dio Livingston [Primary Care Provider] - Diet: Carb Consistent or DM2 and Heart Healthy Addtl Attending Provider Instructions: You will be set up with a 30 day event monitor If you do not hear from someone in the next 48 hours about this, please call the hospital to speak with case management regarding set up Pending Studies at Discharge: No Stand-Alone Forms: My [facility] Local[employer], Smoking Cessation Medications and DC Order Prescriptions: New clopidogrel 75 mg Tablet 75 mg PO QAM Qty: 30 RF: 1 Continued (DME) lancets [FreeStyle Lancets] 28 gauge misc See Dose Instructions .ROUTE .MEDSUPPLY Qty: 400 RF: 3 atorvastatin 80 mg tablet 80 mg PO DAILY 90 Days Qty: 90 RF: 3 dutasteride 0.5 mg capsule 0.5 mg PO DAILY Qty: 90 RF: 0 metformin 500 mg tablet 1,000 mg PO BID Qty: 180 RF: 3 tolterodine 2 mg tablet 2 mg PO BID Qty: 180 RF: 2 cyanocobalamin (vitamin B-12) 1,000 mcg capsule 1,000 mcg PO DAILY RF: 0 diphenoxylate-atropine 2.5-0.025 mg tablet 1 tab PO QID PRN (Reason: Diarrhea) RF: 0 (DME) FreeStyle Lite Strips strip See Dose Instructions .ROUTE .MEDSUPPLY Qty: 10 RF: 0 glipizide 5 mg tablet extended release 24hr 5 mg PO BID Qty: 180 RF: 0 krill oil 500 mg capsule 1,000 mg PO DAILY RF: 0 lisinopril 5 mg tablet 5 mg PO DAILY Qty: 90 RF: 0 levothyroxine 100 mcg tablet 100 mcg PO QAM RF: 0 multivitamin with minerals Tablet 1 tab PO DAILY RF: 0 alfuzosin 10 mg tablet extended release 24 hr 10 mg PO QPM RF: 0 Discontinued aspirin 325 mg tablet 325 mg PO DAILY RF: 0 Discharge Orders: Discharge Order (Routine); Ordered 08/23/19 Ordered By: Edna Alexander Admission Data Admit Date/Time: 08/22/19 14:29 Attending Provider: Edna Alexander Admit Provider: Edna Alexander Primary Care Provider: Dio Livingston Other Providers: Edna Alexander ; Sergei Moreno III Other Interventions: Discharge Summary Assessment (RN) Last Done: 08/23/19 16:25 DC Date/Time DO NOT enter until pt leaves facility: 08/23/19 16:54
[2019-08-23 16:27] VITALS: BP 154/80; PULSE 64
[2019-08-23] MEDS ORDERED: STROKE PATIENT DISCHARGE STA (16:47)
--- NOTE | 2019-08-23 16:52 | Pharmacy Report ---
Pharmacist Stroke Counseling - Date of Service August 23, 2019 - Scope: Pharmacy has been consulted to provide medication discharge counseling for this patient admitted with [ischemic stroke] [hemorrhagic stroke] [transient ischemic attack] as per the Pharmacist Discharge Counseling for Stroke Patients Ling col. - Medications on Discharge: Home Medications Medication Instructions Recorded Confirmed blood sugar diagnostic #10 ea 04/12/19 04/21/19 cyanocobalamin (vitamin B-12) 1,000 mcg PO DAILY cap 04/12/19 08/22/19 1,000 mcg capsule diphenoxylate-atropine 2.5 1 tab PO QID PRN tab 04/12/19 08/22/19 mg-0.025 mg tablet glipizide 5 mg tablet, extended 5 mg PO BID #180 tab 04/12/19 08/22/19 release 24 hr krill oil 500 mg capsule 1,000 mg PO DAILY cap 04/12/19 08/22/19 levothyroxine 100 mcg tablet 100 mcg PO QAM tab 04/12/19 08/22/19 lisinopril 5 mg tablet 5 mg PO DAILY #90 tab 04/12/19 08/22/19 alfuzosin 10 mg PO QPM 08/22/19 08/22/19 multivitamin with minerals 1 tab PO DAILY 08/22/19 08/22/19 New Rx's Medication Instructions Recorded FreeStyle Lancets 28 gauge #400 ea NS 05/21/19 atorvastatin 80 mg tablet 80 mg PO DAILY 90 Days #90 tab 05/27/19 dutasteride 0.5 mg capsule 0.5 mg PO DAILY #90 cap 06/17/19 metformin 500 mg tablet 1,000 mg PO BID #180 tab 06/21/19 tolterodine 2 mg tablet 2 mg PO BID #180 tab 07/19/19 clopidogrel 75 mg PO QAM #30 tab 08/23/19 - Action: The above medications, specifically ones for stroke treatment/prophylaxis, have been reviewed in detail with the patient and/or patient physician relations representative(s) prior to discharge. This includes indication, common adverse reactions, drug interactions, and medication administration. Medication counseling has been employed using the teach-back method to ensure understanding. - Outcome: The patient and/or patient physician relations representative(s) have demonstrated understanding of the medications. Please note, they are aware that the pharmacist will call them within 72 hours post-discharge to confirm that the appropriate medications are being taken and answer any further medication related questions the patient might have at that time. Contact information Individual to be contacted: Symone Relationship to patient (if applicable): Phone number: Best time to call: [phone] Additional comments: Pt very eager to leave. Briefly went over common side effects related to plavix. Pt verbalizes understanding. Pt will f/u with PCP on whether or not to continue ASA 325mg daily. He was previously taking ASA 325mg BID Thank you for allowing pharmacy to be involved in the care of this patient. Please call [phone] or [phone] with any additional questions
--- NOTE | 2019-08-23 18:58 | Neurology Consultation ---
Date of Consultation August 23, 2019 Assessment & Plan (1) Acute thalamic infarction: Michael Perkins is a 68 yo man w/ PMH of HTN, HLD, hypothyroidism, DM, BPH and obesity who p/t [facility] after acute onset of L face/arm/leg numbness. Symptom localization: right thalamuc Stroke mechanism: lacunar/lipohyalinosis, less likely cardioembolic Stroke WorkUp: (independent review of all neuro-images as described below) - CTA head/neck: no LVO, high grade stenosis or aneurysm - MRI brain: acute infarct in right thalamus, atrophy vs congenital underdevelopment of right temporal lobe, moderate SVID - TTE: EF 55-60%, no PFO - Telemetry: NSR - A1c: 6.6 - FLP: 47 - Troponin: negative Stroke Management: - Continuous cardiac monitoring, recommend 30 day event monitor as outpatient if telemetry here unrevealing - Vitals, Neurochecks, NIHSS per unit routine - BP parameters: SBP CAP 180, goal normotension over next 3-4 days - Consult speech, PT, OT for supportive management - Counseled concerning stroke education, smoking cessation, healthy diet, physical activity, weight loss - Follow up with PCP for assistance with outpatient goals (BP <135/85, LDL <70, A1c <7) - Follow up in neurology clinic in 6-8 weeks Secondary Stroke Prevention: - Antiplatelet: ASA 81mg po daily/plavix 75 mg daily x 30 days, then plavix 75mg daily - Anticoagulation: Not indicated at this time - Statin: Atorvastatin 80mg daily HTN: - BP parameters, work with PCP to achieve goal as above FEN/GI: - Diet: Cardiac HH diet and PO meds given absence of bulbar signs or symptoms - Monitor lytes and replete PRN Glucose Control: - Sliding scale insulin and accuchecks per primary team to avoid hyperglycemia Thank you for this interesting consult. Please call or text with any questions. (2) Hypertension: History of Present Illness Attending Physician: Edna Alexander, History of Present Illness Michael Perkins is a 68 yo man w/ PMH of HTN, HLD, hypothyroidism, DM, BPH an d obesity who p/t [facility] after acute onset of L face/arm/leg numbness. 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 Denies any associated weakness, facial droop, slurred speech or headache. Presented to the ED the following morning as symptoms had not subsided. In the ED, labs notable for WBC 6.48, Hb 14.5, Plts 171, INR 1.1, glucose 125, Na 133, Cr 0.79, Ca/Mg WNL, troponin negative, LFTs WNL, UA negative for infection. EKG showed NSR. MRI brain showed acute infarct in right thalamus. CTA H&N showed no LVO, high grade stenosis or aneurysm. Patient admitted for stroke workup. Stroke Workflow: Where patient arrived from: home Time patient arrived in ED: 11:17am Triaged as Trauma: N In-house stroke: n/a Mode of arrival: Personal vehicle Time patient undergoes advanced imagin:05pm Time IV tpa is given: NA tPA bolus: NA tPA dose: NA If tpa not given, why not: Outside of time window If delay >60min after hospital arrival, why: n/a If no IA therapy, why not: No LVO on CTA Patient Features: Admission NIHSS: 1 Admission Modified Saman Scale: 0-1 Time patient last seen well: 8pm on 08/21/19 Wake up stroke: No Intubation status: Not intubated Stroke Risk Factors: Hypertension: Y Hyperlipidemia: Y Atrial Fib: N Tobacco: N Diabetes: Y Taking NOAC or warfarin: N Allergies Allergy/AdvReac Type Severity Reaction Status Date / Time No Known Allergies Allergy Unknown NONE Verified 08/22/19 12:32 Home Medications Home Medications Medication Instructions Recorded Confirmed Type blood sugar diagnostic #10 ea 04/12/19 04/21/19 History cyanocobalamin (vitamin B-12) 1,000 mcg PO DAILY cap 04/12/19 08/22/19 History 1,000 mcg capsule diphenoxylate-atropine 2.5 1 tab PO QID PRN tab 04/12/19 08/22/19 History mg-0.025 mg tablet glipizide 5 mg tablet, extended 5 mg PO BID #180 tab 04/12/19 08/22/19 History release 24 hr krill oil 500 mg capsule 1,000 mg PO DAILY cap 04/12/19 08/22/19 History levothyroxine 100 mcg tablet 100 mcg PO QAM tab 04/12/19 08/22/19 History lisinopril 5 mg tablet 5 mg PO DAILY #90 tab 04/12/19 08/22/19 History FreeStyle Lancets 28 gauge #400 ea NS 05/21/19 Rx atorvastatin 80 mg tablet 80 mg PO DAILY 90 Days #90 tab 05/27/19 08/22/19 Rx dutasteride 0.5 mg capsule 0.5 mg PO DAILY #90 cap 06/17/19 08/22/19 Rx metformin 500 mg tablet 1,000 mg PO BID #180 tab 06/21/19 08/22/19 Rx tolterodine 2 mg tablet 2 mg PO BID #180 tab 07/19/19 08/22/19 Rx alfuzosin 10 mg PO QPM 08/22/19 08/22/19 History multivitamin with minerals 1 tab PO DAILY 08/22/19 08/22/19 History clopidogrel 75 mg PO QAM #30 tab 08/23/19 Rx Patient History Medical History Arteriosclerotic coronary artery disease (Acute) Benign prostatic hyperplasia with elevated prostate specific antigen (PSA) (Inactive) Diabetes Dyslipidemia (Acute) Elevated PSA (Acute) Erectile dysfunction (Acute) Hypertension (Acute) Hypoglycemia (Acute) Hypothyroidism (Acute) Obese (Acute) Surgical History No pertinent past surgical history Family History (Updated 08/22/19 @ 15:04 by Melissa Neil PA-C) Other Coronary heart disease Heart disease Social History Preferred Language: Andorran Communication Ability: Effective Schedule Planning Manager Required: No Beliefs That Will Affect Care: None marital status: Current Living Situation: Spouse Other Information That Helps Us Care for You: No Feels Safe at Home: Yes Safety Concerns: Feels Safe At This Time Smoking Status: Never smoker Do You Dip or Chew Tobacco: No ; Second Hand Exposure: No ; Tobacco Cessation Education Requested by Patient: No Hx Alcohol Use: No Hx Substance Use: No Review of Systems Review of Systems: 14 point review of systems completed and negative except as in HPI. Physical Exam Physical Exam: General Exam: GEN: NAD, sitting in examination bed. CV: RRR on monitor, trace significant edema. PULM: Nonlabored respirations on room air. Neuro Exam: MS: Awake and Alert. Oriented to person, place, and date. Speech fluent and appropriate without dysarthria or paraphasic errors. Language intact including naming, comprehension, repetition. Cognition and memory grossly intact. Attention intact. No neglect. CN: Visual pham full, + blink to threat bilaterally. No extinction to double simultaneous stimuli. Normal fundoscopic exam. PERRLA OU. EOMI without nystagmus. Facial sensation intact to LT. Facial muscles full and symmetric. Hearing intact to conversation. Uvula midline with symmetric palatal elevation. SCMs and shoulder shrug normal. Tongue midline. MOTOR: Normal bulk and tone. + pronator drift in LUE. BUE strength 5/5 at deltoids, biceps, triceps, wrist flexors and extensors, and finger flexors bilaterally. BLE strength 5/5 at iliopsoas, hamstrings, quadriceps, tibialis anterior, and gastrocnemius bilaterally. REFLEXES: 1+ at biceps, triceps, brachioradialis, 1+ patella, and trace Achilles bilaterally. Toes mute bilaterally. SENSORY: Intact to LT throughout, no extinction to double simultaneous stimuli. Vibration and temperature intact throughout. COORDINATION: No dysmetria or ataxia on [id number] bilaterally. Normal Tyra bilaterally. GAIT: Normal gait, normal Romberg. NIH STROKE SCALE 1A. Level of Consciousness (0-3) = 0 1B. LOC Questions (0-2) = 0 1C. LOC Commands (0-2) = 0 2. Best Horizontal Gaze (0-2) = 0 3. Visual Pahm (0-3) = 0 4. Facial Palsy (0-3) = 0 5. Motor Arm Right (0-4) = 0 Left (0-4) = 0 6. Motor Leg Right (0-4) = 0 Left (0-4) = 0 7. Limb Ataxia (0-2) = 0 8. Sensory (0-2) = 0 9. Best Language (0-3) = 0 10. Dysarthria (0-2) = 0 11. Extinction and Inattention (0-2) = 0 NIHSS TOTAL = 0 Results & Data Vital Signs (Past 12 Hours) Vital Signs Temp Pulse Pulse Resp BP BP Pulse Ox 08/23/19 16:25 36.4 C L 64 69 18 156/91 H 154/80 H 94 08/23/19 15:00 36.4 C L 69 18 156/91 H 94 08/23/19 12:40 36.6 C 64 20 94 08/23/19 10:04 95 08/23/19 08:05 36.7 C 66 16 155/84 H 94 PG Care Time/CCT Total # of Minutes Spent Total Time Spent with Patient: Total time spent is greater than 50% in coordination of care (as documented) at patient's floor/unit and/or counseling patient:
--- NOTE | 2019-08-26 10:22 | Pharmacy Report ---
Pharmacist Post D/C Phone Note - Phone Note: Date of phone call: August 26, 2019. Individual with whom pharmacist spoke to: of patient- MERI GRIER The following questions were reviewed during the phone call with responses listed below each: Can you tell me the medications that you are currently taking as well as when and how you take each medication? -See Table Below When have you missed any doses of your medications? - No missed doses. What side effects are you having from your medications, specifically, the new medications you were started on? - None from Plavix. Patient was instructed to stop taking ASA by the doctor here and by his PCP. What questions do you have about your medications? - None at this time. What problems are you having obtaining your medications? - None. When is your next appointment with your primary care doctor? - Pt has seen PCP already and has appts with Debate Director and Neurologist in near future. Additional comments: - Patient's reported no problems so far and that everything was going well. Asked to call us if any questions arise in the future regarding meds. She agreed to do that. As per the Pharmacist Discharge Counseling for Stroke Patients Protocol, this phone call has been completed within 72 hours of discharge. Thank you for allowing us to be involved in the care of this patient. - Home Medications: Home Medications Medication Instructions Recorded Confirmed blood sugar diagnostic #10 ea 04/12/19 04/21/19 cyanocobalamin (vitamin B-12) 1,000 mcg PO DAILY cap 04/12/19 08/22/19 1,000 mcg capsule diphenoxylate-atropine 2.5 1 tab PO QID PRN tab 04/12/19 08/22/19 mg-0.025 mg tablet glipizide 5 mg tablet, extended 5 mg PO BID #180 tab 04/12/19 08/22/19 release 24 hr krill oil 500 mg capsule 1,000 mg PO DAILY cap 04/12/19 08/22/19 levothyroxine 100 mcg tablet 100 mcg PO QAM tab 04/12/19 08/22/19 alfuzosin 10 mg PO QPM 08/22/19 08/22/19 multivitamin with minerals 1 tab PO DAILY 08/22/19 08/22/19 New Rx's Medication Instructions Recorded FreeStyle Lancets 28 gauge #400 ea NS 05/21/19 atorvastatin 80 mg tablet 80 mg PO DAILY 90 Days #90 tab 05/27/19 dutasteride 0.5 mg capsule 0.5 mg PO DAILY #90 cap 06/17/19 metformin 500 mg tablet 1,000 mg PO BID #180 tab 06/21/19 tolterodine 2 mg tablet 2 mg PO BID #180 tab 07/19/19 clopidogrel 75 mg PO QAM #30 tab 08/23/19 lisinopril 5 mg tablet 5 mg PO DAILY #90 tab 08/25/19
== END 2019-08-23 16:54 | disposition home or self-care (01) | DRG 65 ==
LOC: ED 11:09 → 2N 14:29
DX: Z72.89 Other problems related to lifestyle; Z95.1 Presence of aortocoronary bypass graft; Z79.84 Long term (current) use of oral hypoglycemic drugs; I10 Essential (primary) hypertension; G31.9 Degenerative disease of nervous system, unspecified; R35.0 Frequency of micturition; I63.89 Other cerebral infarction; G81.94 Hemiplegia, unspecified affecting left nondominant side; R29.701 NIHSS score 1; E11.9 Type 2 diabetes mellitus without complications; I25.10 Atherosclerotic heart disease of native coronary artery without angina pectoris; Z82.49 Family history of ischemic heart disease and other diseases of the circulatory system; N40.1 Benign prostatic hyperplasia with lower urinary tract symptoms; G93.89 Other specified disorders of brain; Z79.899 Other long term (current) drug therapy; E03.9 Hypothyroidism, unspecified; Z79.82 Long term (current) use of aspirin; E66.9 Obesity, unspecified; E78.5 Hyperlipidemia, unspecified; Z68.32 Body mass index [BMI] 32.0-32.9, adult